=== PATIENT | female | born 1950 | race Caucasian/White ===

== ENCOUNTER 2018-02-01 08:19 | Outpatient (CLI) | payer OTHER, SELFPAY ==
--- NOTE | 2018-02-01 09:00 | DI.RAD_ITS ---
SYMPTOM/DIAGNOSIS: THORACIC RECON. PA AND LATERAL CHEST: The heart size is normal. The aorta is mildly tortuous. The lungs are well inflated and clear. No infiltrate or effusion is seen. IMPRESSION: Negative chest x-ray.
--- NOTE | 2018-02-01 10:39 | DI.NM_ITS ---
SYMPTOMS/DIAGNOSIS: ABDOMINAL PAIN CCK-HEPATOBILIARY SCAN: 4.6 mCi of technetium 99m MDP were administered IV. There is normal hepatic uptake. The gallbladder and small bowel are promptly visualized. 1.4 mcg of Kinevac were administered via IV drip over 45 minutes. The gallbladder ejection fraction is calculated at 98%. IMPRESSION: Normal CCK-hepatobiliary scan.
[2018-02-01] MEDS: Sincalide 5 MCG VIAL IJ (13:07)
== END 2018-02-01 08:39 ==
PROVIDERS: PCP Internal Medicine; Visit Provider Internal Medicine
DX: R10.9 Unspecified abdominal pain (principal); M54.6 Pain in thoracic spine
CPT/HCPCS: 78227; 71046